=== PATIENT | male | born 1990 | race Caucasian/White ===

== ENCOUNTER 2023-09-26 08:17 | Emergency (ER) | payer BC, OTHER ==
[2023-09-26] MEDS: Lidocaine 1% 5 ML VIAL INJECT ONE (08:30)
[2023-09-26] MEDS: Diphtheria,Pertussis(Acell),Tetanus Vaccine 0.5 ML Syringe IM ONE (08:40)
[2023-09-26] MEDS: Take Home: Cephalexin 500 MG Cap, 6 Cap Pack PO ONE (08:42)
[2023-09-26] MEDS: Lidocaine 1% 5 ML VIAL ONE (08:42)
[2023-09-26 09:37] VITALS: BP 126/86; PULSE 95
== END 2023-09-26 09:00 | disposition home or self-care (01) ==
LOC: LL.ED 08:17
DX: S01.81XA Laceration without foreign body of other part of head, initial encounter (principal); Z23 Encounter for immunization; W01.0XXA Fall on same level from slipping, tripping and stumbling without subsequent striking against object, initial encounter; Y92.480 Sidewalk as the place of occurrence of the external cause
CPT/HCPCS: 12011; 90471; 90715; 99282-25; A9270-GY; J3490